=== PATIENT | female | born 1945 | race Caucasian/White ===

== ENCOUNTER 2022-02-02 16:52 | Emergency (ER) | payer BC, MEDICARE, OTHER | END 2022-02-02 19:34 | disposition home or self-care (01) | LOC: JP.ED 16:52 | DX: H61.23 Impacted cerumen, bilateral (principal); Z88.0 Allergy status to penicillin; Z88.2 Allergy status to sulfonamides | CPT/HCPCS: 69210; 99281; 99282-25 ==